=== PATIENT | female | born 1940 ===

== ENCOUNTER 2018-06-16 09:47 | Outpatient (CLI) | payer MEDICARE ==
--- NOTE | 2018-06-16 16:16 | NM ---
NUCLEAR MEDICINE [facility] BRAIN SCAN: Date: 06/16/18 HISTORY: 77-year-old female with Parkinson's disease. TECHNIQUE: Premedication with 130 mg of potassium iodide PO 1 hour prior to radiopharmaceutical injection. 4.5 mCi of I-123 Ioflupane injected IV. 3 hours later, axial SPECT of brain performed. FINDINGS: There is bilaterally symmetrical uptake in the caudate nuclei and putamina. IMPRESSION: Normal. No evidence of Parkinsonism. POS: [facility]
== END 2018-06-16 09:48 | disposition home or self-care (01) ==
LOC: NM 09:47
PROVIDERS: ATTEND Psychiatry & Neurology Neurology
DX: G20 Parkinson's disease (principal)
CPT/HCPCS: 78607; A9584